=== PATIENT | female | born 1985 | race Caucasian/White ===

== ENCOUNTER 2017-03-01 01:03 | Emergency (ER) | payer OTHER ==
--- NOTE | 2017-03-01 01:33 | PDOC ---
History of Present Illness - General History Source: Patient Exam Limitations: No Limitations - History of Present Illness Initial Comments: 03/01/17 01:37 The patient is a 32 year old female with significant past medical history of MS and prolactinoma who presents to the ED for chest tightness that began less than 24 hours ago. Patient reports she developed chest tightness early yesterday morning. No exacerbating or alleviating factors. Denies lightheadedness, diaphoresis, chest pain, SOB, jaw pain, shoulder pain, arm pain , leg swelling, nausea, or vomiting. States she is currently on a ketogenic diet where she takes potassium and magnesium as a supplement, but still feels likes her electrolytes are low. Patient states she is on a depo shot. Denies any sick contacts or recent travels. Patient currently has a office/desk job. The patient denies fever, chills, cough, abdominal pain, and diarrhea. Allergies: tetracyclines Social History: No alcohol, tobacco, or drug use reported. Past Surgical History: appendectomy, cholecystectomy, gastric lap band PCP: Dr. Michael Oconnor <Joan Reece - Last Filed: 03/01/17 01:38> - General History Source: Patient <YumiJose Alejandro - Last Filed: 03/01/17 03:23> - General Stated Complaint: CHEST TIGHTNESS Time Seen by Provider: 03/01/17 01:30 Past History <Joan Reece - Last Filed: 03/01/17 01:38> - Surgical History Appendectomy: Yes Cholecystectomy: Yes Gastric Stapling: Yes (lapband) - Psycho/Social/Smoking Cessation Hx Anxiety: No Suicidal Ideation: No Smoking History: Never smoked Hx Alcohol Use: No Drug/Substance Use Hx: No Substance Use Type: None <Jose Alejandro Jackman - Last Filed: 03/01/17 03:23> - Past Medical History Allergies/Adverse Reactions: Allergies Allergy/AdvReac Type Severity Reaction Status Date / Time Tetracyclines Allergy Verified 03/01/17 01:36 Home Medications: Ambulatory Orders Medroxyprogesterone Acetate [Depo-Provera] 0 mg IM ASDIR 01/26/16 Non-Formulary 0.5 mg PO BID 01/26/16 Cholecalciferol (Vitamin D3) [Vitamin D3] 50,000 unit PO WEEKLY 03/01/17 Natalizumab [Tysabri] 300 mg IV ASDIR 03/01/17 Review of Systems - Review of Systems Able to Perform ROS?: Yes Comments:: 03/01/17 01:38 CONSTITUTIONAL: Absent: fever, no chills, no fatigue EYES: Absent: visual changes ENT: Absent: ear pain, no sore throat CARDIOVASCULAR: Absent: chest pain, no palpitations RESPIRATORY: +chest tightness Absent: cough, no SOB GI: Absent: abdominal pain, no nausea, no vomiting, no constipation, no diarrhea GENITOURINARY: Absent: dysuria, no frequency, no hematuria MUSCULOSKELETAL: Absent: back pain, no arthralgia, no myalgia SKIN: Absent: rash NEURO: Absent: headache <Joan Reece - Last Filed: 03/01/17 01:38> *Physical Exam - Physical Exam Comments: 03/01/17 01:38 GENERAL: Morbidly obese. Well-appearing, well-nourished. No apparent distress. HEENT: Normocephalic, atraumatic. PERRL, EOM intact. CARDIOVASCULAR: Normal S1, S2. Regular rate and rhythm. PULMONARY: Clear to auscultation bilaterally. ABDOMEN: Soft, non-distended, non-tender. EXTREMITIES: Normal ROM in all four extremities. No gross deformities. SKIN: Warm, dry. No rash NEUROLOGICAL: No focal neurological deficits. <Joan Reece - Last Filed: 03/01/17 01:38> Heart Score/ECG Review - ECG Impressions Comment:: 03/01/17 01:38 NSR with sinus arrhythmia @64bpm Normal ECG <Joan Reece - Last Filed: 03/01/17 01:38> ED Treatment Course - LABORATORY CBC & Chemistry Diagram: 03/01/17 01:33 03/01/17 01:33 <Jose Alejandro Jackman - Last Filed: 03/01/17 03:23> Medical Decision Making - Medical Decision Making 03/01/17 03:23 Dr. Jackman: The scribe's documentation has been prepared under my direction and personally reviewed by me in its entirery. I confirm that the note above accurately reflects all work, treatment, procedures, and medical decision making performed by me. <Jose Alejandro Jackman Filed: 03/01/17 03:23> *DC/Admit/Observation/Transfer - Attestations Scribe Attestion: 03/01/17 01:38 Documentation prepared by Joan Reece, acting as emergency medicine medical director for Jose Alejandro Jackman MD/DO. <Joan Reece - Last Filed: 03/01/17 01:38> - Discharge Dispostion Admit: No <Jose Alejandro Jackman - Last Filed: 03/01/17 03:23> Diagnosis at time of Disposition: Chest pain - Discharge Dispostion Disposition: HOME Condition at time of disposition: Stable - Referrals Referrals: Michael Oconnor [Primary Care Provider] - Mian Barnett MD [Staff Physician] - - Patient Instructions Printed Discharge Instructions: DI for Chest Pain - Post Discharge Activity Work/School Note: Back to Work
[2017-03-01 01:40] VITALS: BP 95/71; PULSE 76; TEMP 98.2; BMI 66.4
[2017-03-01 01:56] LABS: BASOPHIL 0.8 % (0-2.0); MCH 28.1 pg (25.7-33.7); MCHC 33.1 g/dl (32.0-36.0); MEAN CELL VOLUME 84.8 fl (80-96); MEAN PLT VOLUME 9.5 fl (7.5-11.1); NEUTROPHILS 43.1 % (42.8-82.8); PLATELET COUNT 130 K/MM3 (134-434); RDW 14.1 % (11.6-15.6); WHITE BLOOD COUNT 5.7 K/mm3 (4.0-10.0)
[2017-03-01 02:10] LABS: INR 1.17 (0.82-1.09); PROTHROMBIN TIME (PATIENT) 12.9 SEC (9.98-11.88)
[2017-03-01 02:24] LABS: ALBUMIN 3.1 g/dl (3.4-5.0); ALK PHOS 75 U/L (45-117); ANION GAP 12 (8-16); BILIRUBIN,TOTAL 1.3 mg/dL (0.2-1.0); CALCIUM 8.6 mg/dL (8.5-10.1); CO2 24 mmol/L (21-32); COCKROFT - GAULT 295.035; CREATININE 0.8 mg/dL (0.55-1.02); GLUCOSE,RANDOM 84 mg/dL (74-106); SGOT/AST 18 U/L (15-37); SGPT/ALT 32 U/L (12-78); TOT PROT 5.6 g/dl (6.4-8.2)
[2017-03-01 02:55] LABS: TROPONIN I < 0.02 ng/ml (0.00-0.05)
--- NOTE | 2017-03-01 11:22 | EKG ---
Test Reason : Blood Pressure : / mmHG Vent. Rate : 063 BPM Atrial Rate : 063 BPM P-R Int : 142 ms QRS Dur : 092 ms QT Int : 446 ms P-R-T Axes : 045 027 024 degrees QTc Int : 456 ms NORMAL SINUS RHYTHM WITH SINUS ARRHYTHMIA NORMAL ECG NO PREVIOUS ECGS AVAILABLE Confirmed by KAYLA AGUIRRE MD ([id number]) on 03/01/2017 11:21:34 AM Referred By: Confirmed By:KAYLA AGUIRRE MD
== END 2017-03-01 03:48 | disposition home or self-care (01) ==
LOC: JER 01:03
DX: R07.9 Chest pain, unspecified (principal); G35 Multiple sclerosis; D35.2 Benign neoplasm of pituitary gland; Z98.84 Bariatric surgery status; E66.9 Obesity, unspecified; Z68.44 Body mass index [BMI] 60.0-69.9, adult
CPT/HCPCS: 36415; 80053; 81003; 82550; 84484; 84703; 85025; 85379; 85610; 93005; 93010; 99284-25